=== PATIENT | female | born 1960 | race Caucasian/White ===

== ENCOUNTER 2017-01-13 08:50 | Outpatient (CLI) | payer BC ==
--- NOTE | 2017-01-13 09:35 | MMO ---
BILATERAL SCREENING MAMMOGRAM: DATE: 01/13/17 HISTORY: 56-year-old female for screening mammography. History of bilateral augmentation 25 years ago. COMPARISON: 08/14/13. FINDINGS: Bilateral MLO and CC views of the breasts, as well as implant displacement views, show scattered fib roglandular breast tissue. Bilateral retropectoral saline implants are seen. There is no evidence of suspicious mass, suspicious cluster of microcalcifications, or area of architectural distortion. A benign-appearing calcification is seen in the left breast. Interpretation of this mammogram was performed with the assistance of computer-aided detection. IMPRESSION: BIRADS 2: Benign Finding(s) Annual screening mammography is recommended. POS: [facility]
== END 2017-01-13 08:51 | disposition home or self-care (01) ==
LOC: MAMMO 08:50
PROVIDERS: ATTEND Family Medicine
DX: Z12.31 Encounter for screening mammogram for malignant neoplasm of breast (principal)
CPT/HCPCS: 77067; G0202